=== PATIENT | male | born 1960 | race Caucasian/White ===

== ENCOUNTER 2022-04-14 13:40 | Outpatient (CLI) | payer OTHER, SELFPAY ==
--- NOTE | ~2022-04-14 | XR_ITS ---
EXAMINATION: XR abdomen/kub 1V INDICATION: Left ureteral stone TECHNIQUE: Supine views of the abdomen were obtained on 2 radiographs. COMPARISON: 11/21/2019 FINDINGS: There appears to be a 2 mm stone of the left kidney. No stones are identified along the exp ected location of the ureters or the urinary bladder. No definite right nephrolithiasis is identified . The bowel gas pattern is normal. A moderate volume of colonic stool is present. IMPRESSION: 1. Probable left nephrolithiasis. Reviewed, dictated and finalized at location F.
== END 2022-04-14 13:41 | disposition home or self-care (01) ==
LOC: ANHIMG 13:50
PROVIDERS: PCP Internal Medicine; Visit Provider Urology
DX: N20.1 Calculus of ureter (principal); N20.0 Calculus of kidney
CPT/HCPCS: 74018

== ENCOUNTER 2025-07-20 12:45 | Outpatient (CLI) | payer OTHER, SELFPAY ==
[2025-07-20 13:01] LABS: Hematocrit 41.4 % (42.0-52.0); Hemoglobin 12.8 g/dL (14.0-18.0); Immature Granulocyte Percent A 0.0 % (0-0.5); Lymphocytes Absolute Auto 2.06 K/mm3 (0.9-3.2); Mean Corpuscular HGB Conc 30.9 g/dl (32-36); Mean Corpuscular Hemoglobin 26.6 pg (26-34); Mean Corpuscular Volume 85.9 fl (80-100); Nucleated Red Blood Cells Absolute Auto 0.000 K/mm3 (0.0-0.012); Nucleated Red Blood Cells Perc 0.0 % (0.0-0.2); Platelet Count Result 251 k/mm3 (150-375); Red Blood Count 4.82 M/mm3 (4.6-6.20); White Blood Count 5.5 K/mm3 (4.5-10.0)
[2025-07-20 14:08] LABS: Iron 56 ug/dL (49-181)
[2025-07-20 14:17] LABS: Percent Iron Saturation 12 % (20-50)
[2025-07-20 14:49] LABS: Ferritin 8.72 ng/mL (11.1-264)
[2025-07-20 15:14] LABS: Vitamin B12 298.0 pg/mL (239-931)
== END 2025-07-20 12:46 | disposition home or self-care (01) ==
LOC: ANHLAB 12:46
PROVIDERS: PCP Internal Medicine; Visit Provider Internal Medicine Hematology & Oncology
DX: D50.9 Iron deficiency anemia, unspecified (principal)
CPT/HCPCS: 36415; 82607; 82728; 82746; 83540; 83550; 85025